=== PATIENT | female | born 1950 | race Caucasian/White ===

== ENCOUNTER 2017-03-19 06:58 | Inpatient (IN) | payer OTHER, BC ==
[~2017-03-19] VITALS: Ht 165.1 cm; Wt 66.8 kg
[2017-03-19 07:31] LABS: ADD MIUA? YES; BILIRUBIN NEGATIVE; BLOOD LARGE; COLOR YELLOW ((YELLOW)); GLUCOSE (STRIP) NEGATIVE; KETONES 5; LEUKOCYTES LARGE; NITRITE POSITIVE; PROTEIN (STRIP) 100; SPECIFIC GRAVITY 1.019 (1.000-1.030); UROBILINOGEN 0.2 MG/DL (0.2-1.0)
[2017-03-19 07:37] LABS: EPITHELIAL CELLS NONE SEEN /HPF; MUCUS TRACE /LPF; UCUL ADDED? YES; WHITE BLOOD CELLS TNTC /HPF (0-5)
[2017-03-19 07:45] LABS: RED BLOOD CELLS TNTC /HPF (0-5)
[2017-03-19 07:46] LABS: BACTERIA 1+ /HPF
[2017-03-19 07:52] LABS: BASOPHIL COUNT 0.1 K/uL (0-0.1); EOSINOPHIL (%) 0.3 % (0-5); HEMATOCRIT 45.3 % (36.0-46.0); IMMATURE GRANULOCYTE (%) 0.3 % (0.0-0.7); IMMATURE GRANULOCYTE COUNT 0.1 K/uL; INSTRUMENT ABS NEUTROPHIL CT 12.9 K/uL; LYMPHOCYTE COUNT 0.8 K/uL (1.0-2.8); MCHC 33.1 G/DL (30.0-36.0); MCV 96.6 FL (83-99); MONOCYTE (%) 5.2 % (3-12); MONOCYTE COUNT 0.8 K/uL (0-0.8); NEUTROPHIL (%) 88.6 % (45-76); NEUTROPHIL COUNT 12.9 K/uL (1.8-6.4); RBC DIS.WIDTH-CV 12.2 % (11.8-14.6); RBC DIS.WIDTH-SD 43.5 % (39-53); RED BLOOD COUNT 4.69 M/uL (3.80-5.20); WHITE BLOOD COUNT 14.5 K/uL (4.1-10.2)
[2017-03-19 07:55] LABS: CHLORIDE 105 mEq/L (99-109); POTASSIUM 5.7 mEq/L (3.7-5.4); SODIUM 139 mEq/L (136-147)
[2017-03-19 07:57] LABS: GLUCOSE 145 mg/dL (70-99)
[2017-03-19 07:58] LABS: ANION GAP 16 MEQ/L (2-14)
[2017-03-19 07:59] LABS: TOTAL BILIRUBIN 0.6 mg/dL (0.0-1.0)
[2017-03-19 08:01] LABS: ALKALINE PHOSPHATASE 42 IU/L (3-129); GFR ESTIMATE (CALCULATED) 59 mL/min/
[2017-03-19 08:02] LABS: UREA NITROGEN (BUN) 28 mg/dL (9-23)
[2017-03-19 08:32] LABS: MEAN PLAT.VOLUME 10.9 uM^3 (9.5-12.4); PLAT.SUFFICIENCY ADEQUATE; PLATELET COUNT 188 K/uL (156-360)
[2017-03-19] MEDS ORDERED: WELLBUTRIN SR100 MG PO (09:34)
[2017-03-19] MEDS ORDERED: PRISTIQ100 MG PO (09:35)
[2017-03-19] MEDS ORDERED: GLUCOPHAGE850 MG PO (09:36)
[2017-03-19] MEDS ORDERED: ZETIA10 MG PO (09:36)
[2017-03-19] MEDS ORDERED: ZESTRIL2.5 MG PO (09:36)
[2017-03-19 13:46] VITALS: BP 144/71
[2017-03-19 15:40] VITALS: BP 138/78
[2017-03-19 16:11] LABS: POINT-OF-CARE METER ID UU13113725
[2017-03-19 16:32] VITALS: BP 139/78
[2017-03-19 16:38] LABS: TROP-I INTERPRETATION NEGATIVE; TROPONIN-I < 0.01 ng/mL (0.0-0.30)
[2017-03-19 17:45] VITALS: BP 133/63
[2017-03-19 19:13] LABS: POINT-OF-CARE METER ID UU13113675
[2017-03-19 20:00] VITALS: BP 125/61
[2017-03-19 22:05] LABS: POINT-OF-CARE METER ID UU13113725
[2017-03-20 00:42] VITALS: BP 118/58
[2017-03-20 04:08] VITALS: BP 99/51
[2017-03-20 05:38] LABS: POINT-OF-CARE METER ID UU13113774
[2017-03-20 06:57] LABS: ANION GAP 9 MEQ/L (2-14); CHLORIDE 109 MEQ/L (99-109); GFR ESTIMATE (CALCULATED) > 59 mL/min/; GLUCOSE 118 mg/dL (70-99); SAMPLE HEMOLYSIS CHECK 0; SAMPLE ICTERIC CHECK 0; SAMPLE LIPEMIA CHECK 0; SODIUM 141 MEQ/L (136-147); UREA NITROGEN (BUN) 15 mg/dL (9-23)
[2017-03-20 07:18] LABS: EOSINOPHIL (%) 0.1 % (0-5); HEMATOCRIT 37.2 % (36.0-46.0); IMMATURE GRANULOCYTE (%) 0.4 % (0.0-0.7); IMMATURE GRANULOCYTE COUNT 0.1 K/uL; INSTRUMENT ABS NEUTROPHIL CT 11.6 K/uL; LYMPHOCYTE COUNT 0.7 K/uL (1.0-2.8); MCH 31.7 PG (29.0-34.0); MCHC 32.8 G/DL (30.0-36.0); MCV 96.6 FL (83-99); MONOCYTE (%) 7.4 % (3-12); NEUTROPHIL (%) 86.7 % (45-76); NEUTROPHIL COUNT 11.6 K/uL (1.8-6.4); PLATELET COUNT 140 K/uL (156-360); RBC DIS.WIDTH-CV 12.4 % (11.8-14.6); RBC DIS.WIDTH-SD 44.2 % (39-53); RED BLOOD COUNT 3.85 M/uL (3.80-5.20); WHITE BLOOD COUNT 13.4 K/uL (4.1-10.2)
[2017-03-20 07:25] VITALS: BP 110/58
[2017-03-20 11:29] LABS: POINT-OF-CARE METER ID UU13113725
[2017-03-20 15:30] VITALS: BP 117/72
[2017-03-20 16:53] LABS: POINT-OF-CARE METER ID UU13113774
[2017-03-20 20:32] LABS: POINT-OF-CARE METER ID UU13113725
[2017-03-21 00:49] VITALS: BP 123/70
[2017-03-21 06:15] LABS: POINT-OF-CARE METER ID UU13113774
[2017-03-21 06:46] LABS: HEMATOCRIT 37.2 % (36.0-46.0); MCH 31.7 PG (29.0-34.0); MCHC 32.8 G/DL (30.0-36.0); MCV 96.6 FL (83-99); MEAN PLAT.VOLUME 11.3 uM^3 (9.5-12.4); PLATELET COUNT 134 K/uL (156-360); RBC DIS.WIDTH-CV 12.6 % (11.8-14.6); RBC DIS.WIDTH-SD 44.6 % (39-53); RED BLOOD COUNT 3.85 M/uL (3.80-5.20); WHITE BLOOD COUNT 11.9 K/uL (4.1-10.2)
[2017-03-21 07:37] VITALS: BP 140/82
[2017-03-21] MEDS ORDERED: BACTRIM,SEPT1 TABLET PO (10:47)
[2017-03-21 11:27] LABS: POINT-OF-CARE METER ID UU13113725
== END 2017-03-21 12:32 | disposition home or self-care (01) | DRG 872 ==
LOC: EME 06:58 → EDOF 10:03 → ENRESERV 10:07 → 5EAST 13:05 → ENPENDDIS 03-21 → 5EAST 03-21 12:32
PROVIDERS: Hospitalist; Physician Assistant
DX: A41.89 Other specified sepsis (principal); N13.6 Pyonephrosis; E87.2 Acidosis; E87.5 Hyperkalemia; I10 Essential (primary) hypertension; E78.5 Hyperlipidemia, unspecified; E11.9 Type 2 diabetes mellitus without complications; N28.1 Cyst of kidney, acquired; F32.9 Major depressive disorder, single episode, unspecified; F41.9 Anxiety disorder, unspecified; Z96.641 Presence of right artificial hip joint; Z87.891 Personal history of nicotine dependence; Z87.442 Personal history of urinary calculi; Z80.0 Family history of malignant neoplasm of digestive organs; Z79.84 Long term (current) use of oral hypoglycemic drugs
CPT/HCPCS: 71010; 74000; 74176; 74420; 80048; 80053; 81003; 82948; 83605; 84484; 85025; 85027; 87040; 87077; 87086; 87186; 87801; 93005; 99281; 99285; C1769; J0696; J1815; J1885; J2250; J2405; J3010; J7050; J7120